=== PATIENT | female | born 1950 | race Caucasian/White ===

== ENCOUNTER 2022-04-14 08:59 | Emergency (ER) | payer OTHER ==
[2022-04-14 09:25] VITALS: BP 124/50; TEMP 98.6; BMI 39.1
[2022-04-14] MEDS ORDERED: BEBTELOVIMAB (EUA) 175 MG/2 ML VIAL IVPUSH ONE (10:52)
[2022-04-14 13:11] VITALS: PULSE 52
== END 2022-04-14 13:12 | disposition home or self-care (01) ==
LOC: JER 08:59 → JCOVINFU 08:59
DX: U07.1 COVID-19 (principal)
CPT/HCPCS: 99284-25; M0222; Q0222